=== PATIENT | female | born 1985 | race Caucasian/White ===

== ENCOUNTER 2018-11-01 10:40 | Inpatient (IN) | payer OTHER ==
[~2018-11-01] VITALS: Ht 175.3 cm; Wt 110.0 kg
[2018-11-01] MEDS ORDERED: LIDOCAINE 1%, 20ML ONE (11:24)
[2018-11-01] MEDS ORDERED: NEWBORN KIT ONE (11:24)
[2018-11-01] MEDS ORDERED: MISOPROSTOL 200 MCG TABLET ONE (11:25)
[2018-11-01] MEDS ORDERED: MISOPROSTOL 25 MCG TABLET ONE (11:25)
[2018-11-01] MEDS ORDERED: OXYTOCIN 30U/ 0.9% NaCL 500ML 500 ML ONE ×2 (11:25)
[2018-11-01] MEDS ORDERED: FENTANYL/BUPIV./NS/PF 250 ML EPIDCONT SCH (11:31)
[2018-11-01 11:45] LABS: MICROSCOPIC INDICATED
[2018-11-01 11:50] LABS: ALANINE AMINOTRANSFERASE 16 U/L (12-78); ALBUMIN 2.6 g/dL (3.4-5.0); ANION GAP 6 mmol/L (5-15); CALCIUM 8.8 mg/dL (8.5-10.1); CHLORIDE 110 mmol/L (98-107)
[2018-11-01 11:52] LABS: ALKALINE PHOSPHATASE 99 U/L (45-117); BILIRUBIN, DIRECT < 0.1 mg/dL (0.1-0.2); BILIRUBIN,TOTAL 0.2 mg/dL (0.2-1.0); TOTAL PROTEIN 5.8 g/dL (6.4-8.2)
[2018-11-01] MEDS ORDERED: OXYTOCIN 30U/ 0.9% NaCL 500ML 500 ML IV ONE (12:07)
[2018-11-01] MEDS ORDERED: OXYTOCIN 30U/ 0.9% NaCL 500ML 500 ML IV PRN (12:07)
[2018-11-01 12:15] LABS: MD SCAN; MEAN CORPUSCULAR HEMOGLOBIN 33.9 pg (27.0-34.8); MEAN CORPUSCULAR HGB CONC 35.4 g/dL (32.4-35.8); MEAN CORPUSCULAR VOLUME 95.9 fL (80-100); RED CELL DISTRIBUTION WIDTH 14.3 % (9.6-15.2)
[2018-11-01 12:16] LABS: BASOPHILS # (AUTO) 0.04 x10^3/uL (0-0.1); BASOPHILS % (AUTO) 0 % (0-1); EOSINOPHILS # (AUTO) 0.08 x10^3/uL (0-0.4); EOSINOPHILS % (AUTO) 1 % (1-7); LYMPHOCYTES # (AUTO) 1.57 x10^3/uL (1-3.4); LYMPHOCYTES % (AUTO) 17 % (22-44); MEAN PLATELET VOLUME 10.2 fL (7.4-10.4); MONOCYTES # (AUTO) 0.57 x10^3/uL (0.2-0.8); MONOCYTES % (AUTO) 6 % (2-9); NEUTROPHILS # (AUTO) 7.28 x10^3/uL (1.8-6.8); NEUTROPHILS % (AUTO) 76 % (42-75); PLATELET COUNT 150 x10^3/uL (130-400)
[2018-11-01] MEDS ORDERED: FENTANYL PF 100 MCG/2ML IVPush PRN (12:30)
[2018-11-01] MEDS ORDERED: CALCIUM CARBONATE 500 MG TAB.CHEW PO PRN (12:30)
[2018-11-01] MEDS ORDERED: SODIUM CITRATE/CITRIC ACID 30 ML UDC PO PRN (12:30)
[2018-11-01] MEDS ORDERED: ALUMINUM/MAG/SIMETHICONE 30 ML UDC PO PRN (12:30)
[2018-11-01] MEDS ORDERED: MISOPROSTOL 25 MCG TABLET VG PRN (12:30)
[2018-11-01] MEDS ORDERED: ONDANSETRON 2MG/ML, 2ML IVPush PRN (12:30)
[2018-11-01] MEDS ORDERED: FENTANYL PF 500 MCG, BUPIVACAINE/PF 0.5%, 30ML 62.5 ML in SODIUM CHLORIDE 0.9% 177.5 ML EPIDCONT SCH (12:30)
[2018-11-01] MEDS: LACTATED RINGERS 1,000 ML IV SCH (17:42)
[2018-11-01 19:12] VITALS: BP 138/85
[2018-11-02] MEDS: LACTATED RINGERS 1,000 ML IV SCH ×2 (00:43→14:53)
[2018-11-02] MEDS ORDERED: BUPIVACAINE 0.25% ONE (05:55)
[2018-11-02] MEDS ORDERED: LACTATED RINGERS 1,000 ML IV SCH (06:19)
[2018-11-02] MEDS ORDERED: FENTANYL/BUPIV./NS/PF 250 ML EPIDCONT SCH (06:19)
[2018-11-02] MEDS ORDERED: NALOXONE 0.4 MG/ML, 1ML IVPush PRN (06:30)
[2018-11-02] MEDS ORDERED: LACTATED RINGERS 1,000 ML IVBOLUS PRN (06:30)
[2018-11-02] MEDS ORDERED: ONDANSETRON 2MG/ML, 2ML IVPush PRN (06:30)
[2018-11-02] MEDS ORDERED: DIPHENHYDRAMINE 50 MG/ML, 1ML IVPush PRN (06:30)
[2018-11-02] MEDS ORDERED: EPHEDRINE 50 MG/ML, 1ML IVPush PRN (06:30)
[2018-11-02] MEDS: D5%-LACTATED RINGERS 1,000 ML IV SCH ×2 (06:32→14:55)
[2018-11-02] MEDS ORDERED: PREN1TAB60 PO (07:33)
[2018-11-02 08:13] LABS: MICROSCOPIC INDICATED
[2018-11-02] MEDS ORDERED: ONDANSETRON 2MG/ML, 2ML ONE (15:33)
[2018-11-02] MEDS ORDERED: ACETAMINOPHEN 325 MG TABLET ONE ×2 (15:36→20:02)
[2018-11-02] MEDS: ACETAMINOPHEN 325 MG TABLET PO PRN ×2 (15:39→20:04)
[2018-11-02] MEDS ORDERED: AMPICILLIN 2 GM in SODIUM CHLORIDE 0.9% 100 ML IV SCH (16:30)
[2018-11-02] MEDS ORDERED: GENTAMICIN PER PHARMACY MC PRN (18:00)
[2018-11-02] MEDS ORDERED: MISOPROSTOL 200 MCG TABLET ONE (18:06)
[2018-11-02] MEDS ORDERED: METHYLERGONOVINE 0.2 MG/ML IM ONE (18:07)
[2018-11-02] MEDS ORDERED: PHARMACOKINETIC MONITORING MC PRN (18:30)
[2018-11-02] MEDS ORDERED: PHARMACOKINETIC CONSULTATION MC ONE (18:30)
[2018-11-02] MEDS ORDERED: OXYTOCIN 10 UNITS/ML, 1ML ONE (18:38)
[2018-11-02] MEDS ORDERED: HYDROcodone/APAP 5/325 TABLET PO PRN (19:00)
[2018-11-02] MEDS ORDERED: ONDANSETRON 2MG/ML, 2ML IV PRN (19:00)
[2018-11-02] MEDS ORDERED: OXYTOCIN 10 UNITS/ML, 1ML IM PRN (19:00)
[2018-11-02] MEDS ORDERED: METHYLERGONOVINE 0.2 MG/ML IM PRN (19:00)
[2018-11-02] MEDS ORDERED: ACETAMINOPHEN 325 MG TABLET PO PRN (19:00)
[2018-11-02] MEDS ORDERED: MISOPROSTOL 200 MCG TABLET PR PRN (19:00)
[2018-11-02] MEDS: GENTAMICIN 400 MG in SODIUM CHLORIDE 0.9% 100 ML IV SCH (19:00)
[2018-11-02] MEDS ORDERED: CARBOPROST TROMETHAMINE 250 MCG/ML, 1ML IM PRN (19:00)
[2018-11-02] MEDS ORDERED: GENTAMICIN 400 MG in SODIUM CHLORIDE 0.9% 100 ML IV SCH (19:00)
[2018-11-02] MEDS ORDERED: OXYTOCIN 30U/ 0.9% NaCL 500ML 500 ML ONE (20:38)
[2018-11-02] MEDS: OXYTOCIN 30U/ 0.9% NaCL 500ML 500 ML IV SCH (20:43)
[2018-11-02 22:00] VITALS: BP 129/80
[2018-11-03] MEDS: AMPICILLIN 2 GM in SODIUM CHLORIDE 0.9% 100 ML IV SCH ×3 (01:00→16:35)
[2018-11-03] MEDS: HYDROcodone/APAP 5/325 TABLET PO PRN ×6 (01:58→22:18)
[2018-11-03 02:00] VITALS: BP 134/81
[2018-11-03 03:51] LABS: BASOPHILS # (AUTO) 0.05 x10^3/uL (0-0.1); BASOPHILS % (AUTO) 0 % (0-1); EOSINOPHILS % (AUTO) 1 % (1-7); LYMPHOCYTES % (AUTO) 7 % (22-44); MD NO; MEAN CORPUSCULAR HEMOGLOBIN 33.8 pg (27.0-34.8); MEAN CORPUSCULAR HGB CONC 35.2 g/dL (32.4-35.8); MEAN CORPUSCULAR VOLUME 95.9 fL (80-100); MEAN PLATELET VOLUME 9.7 fL (7.4-10.4); MONOCYTES # (AUTO) 0.95 x10^3/uL (0.2-0.8); MONOCYTES % (AUTO) 6 % (2-9); NEUTROPHILS # (AUTO) 13.55 x10^3/uL (1.8-6.8); NEUTROPHILS % (AUTO) 86 % (42-75); PLATELET COUNT 115 x10^3/uL (130-400); RED CELL DISTRIBUTION WIDTH 14.4 % (9.6-15.2)
[2018-11-03] MEDS: OXYTOCIN 30U/ 0.9% NaCL 500ML 500 ML IV SCH ×2 (04:56→14:56)
[2018-11-03 05:38] VITALS: BP 131/79
[2018-11-03 06:14] LABS: CREATININE 0.51 mg/dL (0.55-1.02)
[2018-11-03] MEDS: IBUPROFEN 600 MG TABLET PO PRN ×3 (06:22→20:41)
[2018-11-03 07:45] VITALS: BP 126/82
[2018-11-03] MEDS: DOCUSATE 100 MG CAPSULE PO PRN ×2 (09:07→20:41)
[2018-11-03] MEDS: PRENATAL VIT/IRON/FA 1 EACH TABLET PO SCH (09:07)
[2018-11-03 12:21] VITALS: BP 127/85
[2018-11-03 16:45] VITALS: BP 124/79
[2018-11-03] MEDS: GENTAMICIN 400 MG in SODIUM CHLORIDE 0.9% 100 ML IV SCH (19:24)
[2018-11-03 19:30] VITALS: BP 128/85
[2018-11-04] MEDS: OXYTOCIN 30U/ 0.9% NaCL 500ML 500 ML IV SCH ×2 (00:56→10:56)
[2018-11-04] MEDS: IBUPROFEN 600 MG TABLET PO PRN ×2 (03:00→09:53)
[2018-11-04] MEDS: DOCUSATE 100 MG CAPSULE PO PRN (08:18)
[2018-11-04] MEDS: PRENATAL VIT/IRON/FA 1 EACH TABLET PO SCH (08:18)
[2018-11-04 08:30] VITALS: BP 132/89
[2018-11-04] MEDS ORDERED: IBUP200T49 PO (10:00)
[2018-11-04 11:56] VITALS: BP 138/93
[2018-11-04] MEDS ORDERED: HYDR-3240 PO (12:47)
[2018-11-04] MEDS ORDERED: IBUP-1222 PO (12:48)
[2018-11-04] MEDS ORDERED: SENN-92 PO (12:49)
[2018-11-04] MEDS ORDERED: FERR1TAB9 PO (12:50)
== END 2018-11-04 17:42 | disposition home or self-care (01) | DRG 805 ==
LOC: UNDOADMIN 10:40 → LDIP 10:40 → 2NW 11-02 21:38
PROVIDERS: ADMIT Obstetrics & Gynecology; ATTEND Obstetrics & Gynecology
PROC: 10H07YZ Insertion of Other Device into Products of Conception, Via Natural or Artificial Opening (ICD-10-PCS; 2018-11-01)
PROC: 10907ZC Drainage of Amniotic Fluid, Therapeutic from Products of Conception, Via Natural or Artificial Opening (ICD-10-PCS; 2018-11-01)
PROC: 10E0XZZ Delivery of Products of Conception, External Approach (ICD-10-PCS; principal; 2018-11-02)
PROC: 0KQM0ZZ Repair Perineum Muscle, Open Approach (ICD-10-PCS; 2018-11-02)
PROC: 3E033VJ Introduction of Other Hormone into Peripheral Vein, Percutaneous Approach (ICD-10-PCS; 2018-11-02)
PROC: 3E0R3BZ Introduction of Anesthetic Agent into Spinal Canal, Percutaneous Approach (ICD-10-PCS; 2018-11-02)
PROC: 3E0R33Z Introduction of Anti-inflammatory into Spinal Canal, Percutaneous Approach (ICD-10-PCS; 2018-11-02)
PROC: 0T9B70Z Drainage of Bladder with Drainage Device, Via Natural or Artificial Opening (ICD-10-PCS; 2018-11-02)
DX: O10.92 Unspecified pre-existing hypertension complicating childbirth (principal); O41.1230 Chorioamnionitis, third trimester, not applicable or unspecified; Z37.0 Single live birth; D62 Acute posthemorrhagic anemia; O76 Abnormality in fetal heart rate and rhythm complicating labor and delivery; O70.1 Second degree perineal laceration during delivery; Z3A.39 39 weeks gestation of pregnancy; O99.03 Anemia complicating the puerperium
CPT/HCPCS: 36415; J7121; 76819; 80053; 80170; 81001; 82248; 82565; 82570; 84156; 84550; 85025; 86850; 86900; G0378; J0290; J2405; J3010; J3490; J1580; J2590; J7050; J7120